=== PATIENT | male | born 1950 | race Caucasian/White ===

== ENCOUNTER 2018-07-23 22:51 | Emergency (ER) | payer SELFPAY ==
[2018-07-23 23:06] VITALS: BP 138/107
--- NOTE | 2018-07-23 23:46 | EDPHY ---
H & P Stated Complaint: frequency, retention, and odor to urine Pt thinks he passed a kidney stone Time Seen by Provider: 07/23/18 23:51 HPI/ROS: HPI The patient presents with a few complaints, he is concerned about peritonitis and septic shock and that was the impetus for him to come to the emergency department tonight. He is concern for rupture of his appendix. The patient describes symptoms dating back to about 6 weeks ago when he believes he developed a stone in his penis which was a bladder stone formed by urea which became lodged in his penis. He says because of this stone he has had frequency and dysuria with dark and occasionally malodorous urine. He has been treating this with a variety of home remedies including apple cider vinegar and vitamin-C. He has never had any flank pain, vomiting, fever. Over the weekend he did a 3 day water only fast. Yesterday he was doing some vacuuming and became tired so lie down and heard a gurgling sound in his abdomen which occurred after eating lunch. He was concerned about what he describes as a leaky appendix. He says about 35 years ago he had his appendix "drained" though did not have an appendectomy. He has not had any abdominal pain, vomiting. REVIEW OF SYSTEMS 10 systems were reviewed and negative with the exception of the elements mentioned in the history of present illness. PMHx: no DM, no HTN Soc Hx: housed PHYSICAL General Appearance: Alert, no distress, poor eye contact Mouth: Mucous membranes dry Gastrointestinal: There is a 8 cm oblique scar in the patient's right lower quadrant, Abdomen is soft and non-tender, no masses, bowel sounds normal Neurological: A&O, moves all extremities Skin: Warm and dry, no rashes Musculoskeletal: Neck is supple non tender Extremities: symmetrical, full range of motion Psychiatric: Patient is oriented X 3, there is no agitation Source: Patient Exam Limitations: No limitations - Personal History Current Tetanus/Diphtheria Vaccine: No Current Tetanus Diphtheria and Acellular Pertussis (TDAP): No - Medical/Surgical History Hx Asthma: No Hx Chronic Respiratory Disease: No Hx Diabetes: No Hx Cardiac Disease: No Hx Renal Disease: No Hx Cirrhosis: No Hx Alcoholism: No Hx HIV/AIDS: No Hx Splenectomy or Spleen Trauma: No Other PMH: stent, fx jaw - Social History Smoking Status: Never smoked Constitutional: Initial Vital Signs Temperature (C) 36.3 C 07/23/18 22:54 Heart Rate 99 07/23/18 22:54 Respiratory Rate 16 07/23/18 22:54 Blood Pressure 138/107 H 07/23/18 22:54 O2 Sat (%) 98 07/23/18 22:54 O2 Delivery Mode Room Air Allergies/Adverse Reactions: Iodinated Contrast- Oral and IV Dye Allergy (Verified 07/23/18 23:08) Home Medications: Medication Instructions Recorded NK [No Known Home Meds] 07/23/18 Medical Decision Making Differential Diagnosis: This is a 67-year-old male who is presenting with irritative voiding symptoms which have been present for the last 6 weeks, then concerned by some gurgling in his abdomen after breaking a fast and concerned about appendicitis. Here, he is feeling much better and denies any symptoms. His vital signs are normal. His abdominal exam is benign and while he believes he has not had an appendectomy I question this given his surgical scar. I have offered him testing including blood work and urinalysis to evaluate for urinary tract infection, dehydration, any signs of infection, however he declines. He feels reassured because his symptoms have improved and he is not worried about any serious medical problems at this point. His abdominal exam is benign so I do feel this is reasonable. However I have moderate index of suspicion for urinary tract infection. He is very concerned about cost incurred and would like to avoid any further testing. He says he can follow-up tomorrow at [facility]. I feel this is reasonable. I will discharge him with instructions to obtain a UA tomorrow if he has any ongoing symptoms. Departure - Departure Disposition: Home, Routine, Self-Care Clinical Impression: Abdominal pain Qualifiers: Abdominal location: generalized Qualified Code(s): R10.84 - Generalized abdominal pain Condition: Good Instructions: Acute Abdominal Pain (ED) Additional Instructions: Please follow-up with the [facility] tomorrow for a urine test. Referrals: [facility],. [Clinic] - As per Instructions
== END 2018-07-24 00:11 | disposition home or self-care (01) ==
DX: R10.84 Generalized abdominal pain (principal)

== ENCOUNTER 2018-07-28 04:16 | Emergency (ER) | payer SELFPAY ==
[2018-07-28 04:23] VITALS: BP 165/103
== END 2018-07-28 04:30 | disposition left against medical advice (07) ==
DX: Z53.21 Procedure and treatment not carried out due to patient leaving prior to being seen by health care provider (principal)

== ENCOUNTER 2018-07-28 18:56 | Emergency (ER) | payer SELFPAY ==
--- NOTE | 2018-07-28 19:17 | EDPHY ---
H & P Time Seen by Provider: 07/28/18 19:17 HPI/ROS: CHIEF COMPLAINT: Abdominal bloating HISTORY OF PRESENT ILLNESS: Patient is a 67-year-old male here with concern for "my appendix is leaking." Patient states that around 35 years ago in infection is appendix and the appendix was drained but not removed. States that about 1 week ago May number movement and felt that there was leakage from his appendix at that time. He also reports that he had urinary tract infection at that time with malodorous urine. He has been taking [id number] mg of vitamin C every day for the last week to cure his urinary tract infection into "prevent septic shock". REVIEW OF SYSTEMS: Constitutional: No fever, no chills. Eyes: No discharge. ENT: No sore throat. Cardiovascular: No chest pain, no palpitations. Respiratory: No cough, no shortness of breath. Gastrointestinal: + abdominal pain, no vomiting. Genitourinary: No hematuria. Musculoskeletal: No back pain. Skin: No rashes. Neurological: No headache. Smoking Status: Never smoked Physical Exam: General Appearance: Alert and no distress. ENT: normal dentition. No tonsillar exudate or swelling. Eyes: Pupils equal and round no injection. Respiratory: Chest is nontender, lungs are clear to auscultation. Cardiac: regular rate and rhythm. No lower extremity edema Gastrointestinal: Abdomen is soft and nontender, no masses, bowel sounds normal. Musculoskeletal: Neck is supple and nontender. Extremities have full range of motion and are nontender without deformity Skin: No rashes or lesions. Neuro: Cranial nerves grossly intact. No nystagmus. Ambulatory. Constitutional: Initial Vital Signs Temperature (C) 36.4 C 07/28/18 19:09 Heart Rate 106 H 07/28/18 19:09 Respiratory Rate 16 07/28/18 19:09 Blood Pressure 142/93 H 07/28/18 19:09 O2 Sat (%) 99 07/28/18 19:09 O2 Delivery Mode Room Air Allergies/Adverse Reactions: Iodinated Contrast- Oral and IV Dye Allergy (Verified 07/28/18 19:08) Home Medications: Medication Instructions Recorded Cephalexin [Keflex (*)] 500 mg PO TID #21 cap 07/28/18 Vitamin C 07/28/18 Medical Decision Making - Diagnostics Imaging Results: Imaging Impressions Abdomen/Pelvis CT 07/28/18 19:52 Impression: 1. Severe constipation. Indeterminate study for appendicitis, as a normal nor an abnormal appendix is visualized. Mild diverticulosis sigmoid colon without evidence for diverticulitis. 2. Mild hydronephrosis right kidney without visualized obstructive calculus. There is mild dilatation of both ureters, more on the left than the right without evidence for obstructive calculus. Consider excluding pyelonephritis. 3. Enlarged nodular prostate which is nonspecific. 15-mm soft tissue mass left bladder wall. Recommend neurology consultation. 4. Other chronic findings, as above. Results called and discussed with Ru Woodson PA-C on July 28, 2018 at 2036 hours. ED Course/Re-evaluation: 67-year-old male here with chief complaint of concern for leaking appendix. CT scan did not reveal any evidence of appendicitis particularly did not identify his appendix. It did show CT evidence of possible pyelonephritis also showed a bladder mass and enlarged prostate with hydronephrosis. There was no obvious obstructive uropathy/ureteral stone. I discussed these findings with the patient who reports no history of cancer. He was adamant that his appendix was there and that it was leaking. I spent over 20 min discussing these results with the patient and ultimately he agreed to get IV Rocephin 1 g in the emergency room and be discharged with Keflex and follow up with Urology for further treatment and evaluation of the bladder mass, enlarged prostate and pyelonephritis. Additionally discussed his low sodium levels and I discussed with him that he needs to be eating and drinking this will help his sodium levels. Patient will follow up his primary care physician in a couple days to recheck his metabolic panel. Patient refused IV fluids in the ER because he felt that the IV fluids were causing his appendix to leak more. Differential Diagnosis: Appendicitis, sepsis, pyelonephritis, bladder cancer, ureteral stone, infected ureteral stone - Data Points Laboratory Results: Laboratory Results 07/28/18 19:20 07/28/18 07/28/18 07/28/18 20:30 19:25 19:20 WBC 13.55 10^3/uL H 10^3/uL (3.80-9.50) RBC 4.60 10^6/uL 10^6/uL (4.40-6.38) Hgb 15.4 g/dL g/dL (13.7-17.5) POC Hgb 16.3 gm/dL gm/dL (13.7-17.5) Hct 43.5 % % (40.0-51.0) POC Hct 48 % % (40-51) MCV 94.6 fL fL (81.5-99.8) MCH 33.5 pg pg (27.9-34.1) MCHC 35.4 g/dL g/dL (32.4-36.7) RDW 11.3 % L % (11.5-15.2) Plt Count 267 10^3/uL 10^3/uL (150-400) MPV 9.7 fL fL (8.7-11.7) Neut % (Auto) 70.6 % % (39.3-74.2) Lymph % (Auto) 20.7 % % (15.0-45.0) [place] % (Auto) 7.7 % % (4.5-13.0) Eos % (Auto) 0.3 % L % (0.6-7.6) Baso % (Auto) 0.3 % % (0.3-1.7) Nucleat RBC Rel Count 0.0 % % (0.0-0.2) Absolute Neuts (auto) 9.57 10^3/uL H 10^3/uL (1.70-6.50) Absolute Lymphs (auto) 2.80 10^3/uL 10^3/uL (1.00-3.00) Absolute Monos (auto) 1.05 10^3/uL H 10^3/uL (0.30-0.80) Absolute Eos (auto) 0.04 10^3/uL 10^3/uL (0.03-0.40) Absolute Basos (auto) 0.04 10^3/uL 10^3/uL (0.02-0.10) Absolute Nucleated RBC 0.00 10^3/uL 10^3/uL (0-0.01) Immature Gran % 0.4 % % (0.0-1.1) Immature Gran # 0.05 10^3/uL 10^3/uL (0.00-0.10) POC Sodium 126 mEq/L L mEq/L (135-145) POC Potassium 4.8 mEq/L mEq/L (3.3-5.0) POC Chloride 89 mEq/L L mEq/L (97-110) POC BUN 12 mg/dL mg/dL (7-23) POC Creatinine 1.2 mg/dL mg/dL (0.7-1.3) POC Glucose 97 mg/dL mg/dL (70-100) Urine Color YELLOW Urine Appearance HAZY Urine pH 6.0 (5.0-7.5) Ur Specific [place] 1.008 (1.002-1.030) Urine Protein NEGATIVE (NEGATIVE) Urine Ketones 1+ H (NEGATIVE) Urine Blood NEGATIVE (NEGATIVE) Urine Nitrate NEGATIVE (NEGATIVE) Urine Bilirubin NEGATIVE (NEGATIVE) Urine Urobilinogen NEGATIVE EU EU (0.2-1.0) Ur Leukocyte Esterase 2+ H (NEGATIVE) Urine RBC 1-3 /hpf /hpf (0-3) Urine WBC 50-182 /hpf H /hpf (0-3) Ur Epithelial Cells NONE SEEN /lpf /lpf (NONE-1+) Urine Bacteria 1+ /hpf H /hpf (NONE SEEN) Hyaline Casts 1-5 /lpf /lpf (0-1) Urine Mucus TRACE /lpf /lpf (NONE-1+) Urine Glucose NEGATIVE (NEGATIVE) Medications Given: Discontinued Medications Sodium Chloride (Ns) 1,000 mls @ 0 mls/hr IV EDNOW ONE; Wide Open PRN Reason: Protocol Stop: 07/28/18 19:40 Last Admin: 07/28/18 19:44 Dose: 1,000 mls Ceftriaxone Sodium/Dextrose (Rocephin 1 Gm (Premix)) 50 mls @ 100 mls/hr IV EDNOW ONE PRN Reason: Protocol Stop: 07/28/18 21:39 Last Admin: 07/28/18 21:00 Dose: 50 mls Point of Care Test Results: Chemistry 07/28/18 19:25 POC Sodium 126 mEq/L L mEq/L (135-145) POC Potassium 4.8 mEq/L mEq/L (3.3-5.0) POC Chloride 89 mEq/L L mEq/L (97-110) POC BUN 12 mg/dL mg/dL (7-23) POC Creatinine 1.2 mg/dL mg/dL (0.7-1.3) POC Glucose 97 mg/dL mg/dL (70-100) ISTAT H&H 07/28/18 19:25 POC Hgb 16.3 gm/dL gm/dL (13.7-17.5) POC Hct 48 % % (40-51) Departure - Departure Disposition: Home, Routine, Self-Care Clinical Impression: Bladder mass, Enlarged prostate, Hydronephrosis, Leukocytosis, Hyponatremia Condition: Good Instructions: Hyponatremia (ED), Hydronephrosis (ED) Additional Instructions: Please follow up with her primary care doctor in the next 2-3 days to recheck your sodium. Please ensure to start eating and drinking normally again as this will help with her sodium. Also take the antibiotics as directed for urinary tract infection. Follow-up with Urology as soon as possible. Call them tomorrow to schedule an appointment. Referrals: Keyon Fuller MD [Medical Doctor] - As per Instructions [facility],. [Clinic] - As per Instructions Prescriptions: Cephalexin [Keflex (*)] 500 mg PO TID #21 cap
[2018-07-28 19:38] LABS: PLATELET COUNT 267 10^3/uL (150-400)
[2018-07-28] MEDS ORDERED: NS 1,000 ML IV ONE (19:39)
[2018-07-28 21:31] VITALS: BP 144/75
== END 2018-07-28 21:46 | disposition home or self-care (01) ==
DX: N32.89 Other specified disorders of bladder (principal); N40.0 Benign prostatic hyperplasia without lower urinary tract symptoms; N13.30 Unspecified hydronephrosis; D72.829 Elevated white blood cell count, unspecified; E87.1 Hypo-osmolality and hyponatremia; E86.9 Volume depletion, unspecified
CPT/HCPCS: 82435-PO; 82565-PO; 82947-PO; 84132-PO; 84295-PO; 84520-PO; 85014-PO; 96365; 96366; J0696